=== PATIENT | female | born 1960 | race African-American/Black ===

== ENCOUNTER 2019-10-20 22:38 | Emergency (ER) | payer MEDICAID ==
[~2019-10-20] VITALS: Ht 172.7 cm; Wt 62.0 kg
[2019-10-20] MEDS ORDERED: LIDOCAINE 1%/EPI 1:100,000 10 ML VIAL IJ ONE (23:00)
[2019-10-20] MEDS ORDERED: LIDOCAINE/EPINEPHR/TETRACAINE 3ML TP ONE (23:00)
[2019-10-20] MEDS ORDERED: BACITRACIN ZINC OINT UDPKT TOP ONE (23:00)
[2019-10-20] MEDS ORDERED: ONDANSETRON 4MG ODT PO ONE (23:00)
[2019-10-20] MEDS ORDERED: MORPHINE SULFATE 10 MG/ML CPJ IM ONE (23:00)
[2019-10-20] MEDS ORDERED: TETANUS, DIPHTHERIA, PERTUSSIS VAC/PF 0.5ML (>7YR OLD) IM ONE (23:00)
[2019-10-20] MEDS ORDERED: IBUPROFEN 600MG TABLET PO ONE (23:15)
[2019-10-20] MEDS ORDERED: HYDROCODONE/ACETAMINOPHEN 5/325MG TABLET PO ONE (23:15)
[2019-10-20] MEDS ORDERED: LIDOCAINE HCL/EPINEPHRINE 1%-EPI 1:100,000 20 ML VIAL INFIL NR (23:17)
[2019-10-21 03:53] VITALS: BP 115/81
== END 2019-10-21 04:07 | disposition home or self-care (01) ==
LOC: ER 22:38
DX: S09.8XXA Other specified injuries of head, initial encounter (principal); S01.01XA Laceration without foreign body of scalp, initial encounter; S20.219A Contusion of unspecified front wall of thorax, initial encounter; V43.52XA Car driver injured in collision with other type car in traffic accident, initial encounter; Y93.89 Activity, other specified; Y92.488 Other paved roadways as the place of occurrence of the external cause
CPT/HCPCS: 12013; 70450; 70486; 71250; 90471; 90715; 99284; J3490; Q0162; Z7610

== ENCOUNTER 2019-10-23 07:50 | Emergency (ER) | payer MEDICAID ==
[~2019-10-23] VITALS: Ht 154.9 cm; Wt 55.0 kg
[2019-10-23] MEDS ORDERED: BACITRACIN ZINC OINT UDPKT TOP ONE (09:00)
[2019-10-23 09:20] VITALS: BP 138/74
== END 2019-10-23 09:21 | disposition home or self-care (01) ==
LOC: ER 07:50
DX: Z48.00 Encounter for change or removal of nonsurgical wound dressing (principal)
CPT/HCPCS: 99282